=== PATIENT | female | born 1935 | race Caucasian/White ===

== ENCOUNTER 2018-03-08 14:13 | Outpatient (CLI) | payer MEDICARE, OTHER ==
[2014-04-01 01:54] VITALS: BP 142/60
== END 2018-03-08 14:20 ==
LOC: LAB 14:13
PROVIDERS: ATTEND Internal Medicine
DX: Z01.812 Encounter for preprocedural laboratory examination (principal)
CPT/HCPCS: 36415; 85610; 85730

== ENCOUNTER 2018-09-23 09:24 | Outpatient (CLI) | payer MEDICARE, OTHER ==
[2014-04-01 01:54] VITALS: BP 142/60
[2018-09-23 10:24] LABS: BASOPHILS % 0.6 % (0.0-1.5); EOSINOPHILS % 2.3 % (0.0-6.8); MEAN CORPUSCULAR HEMOGLOBIN 35.9 pg (28.0-34.0); MONOCYTES % 6.4 % (0.0-11.0); NEUTROPHILS # 4.4 # k/uL (1.4-7.7)
[2018-09-23 12:10] LABS: APPEARANCE,URINE CLEAR (CLEAR); COLOR,URINE YELLOW (YELLOW); OCCULT BLOOD,URINE NEGATIVE (NEGATIVE); UROBILINOGEN URINE 0.2 Eu (0.2-1.0)
[2018-09-23 12:20] LABS: eGFR (Non-African) > 60
== END 2018-09-23 09:26 ==
LOC: LAB 09:24
PROVIDERS: ATTEND Internal Medicine
DX: Z00.00 Encounter for general adult medical examination without abnormal findings (principal); I10 Essential (primary) hypertension; E03.9 Hypothyroidism, unspecified; E11.9 Type 2 diabetes mellitus without complications; I25.10 Atherosclerotic heart disease of native coronary artery without angina pectoris; E78.5 Hyperlipidemia, unspecified; M06.9 Rheumatoid arthritis, unspecified
CPT/HCPCS: 36415; 80053; 80061; 81002; 82043; 83036; 84443; 85025

== ENCOUNTER 2018-11-22 13:57 | Outpatient (CLI) | payer OTHER ==
[2014-04-01 01:54] VITALS: BP 142/60
[2018-12-12 12:06] LABS: MEAN CORPUSCULAR HEMOGLOBIN 35.7 pg (28.0-34.0); SEGMENTED NEUTROPHILS % 78 % (39-79)
[2018-12-12 12:07] LABS: MONOCYTES % 5 % (0-11); OVALOCYTES 1+ (NEGATIVE); TEAR DROP CELLS 1+ (NEGATIVE)
== END 2018-11-22 14:02 | disposition home or self-care (01) ==
LOC: LAB 13:57
PROVIDERS: ATTEND Registered Nurse
DX: D75.89 Other specified diseases of blood and blood-forming organs (principal); R53.83 Other fatigue; R70.0 Elevated erythrocyte sedimentation rate
CPT/HCPCS: 36415; 82607; 82746; 85025; 85045; 85651; 86140

== ENCOUNTER 2018-11-29 12:56 | Emergency (ER) | payer OTHER ==
[2014-04-01 01:54] VITALS: BP 142/60
[2018-11-29] MEDS ORDERED: IBUPROFEN 400 MG TABLET PO ONE (13:12)
[2018-12-12 18:15] LABS: eGFR (Non-African) > 60
[2018-12-12 18:17] LABS: SEGMENTED NEUTROPHILS % 74 % (39-79)
--- NOTE | 2018-12-17 11:19 | Diagnostic Imaging Report ---
JENELLE UNDERWOOD [facility] [address] [facility] [address] [address] Report Submission Date: Nov 29, 2018 1:53:58 PM CDT Patient Study Name: SIRENA WERNER Date: Nov 29, 2018 1:27:21 PM CDT Modality Type: DX Gender: F Description: WRIST 3 VIEWS OR MORE : 31 Institution: [facility] Physician: JENELLE UNDERWOOD Exam: Right wrist. History: Pain and swelling after fall 1 week ago. PA, lateral and oblique view of the right wrist are submitted. No previous studies are available for comparison. Well corticated deformity to the distal radial metaphysis may indicate old injury. Severe deformity through the distal ulna may also indicate old injury. Marked degenerate changes at the radiocarpal joint and at the 1st carpometacarpal joint are noted. Soft tissue swelling at the wrist is noted. Widened articulation between the scaphoid bone and lunate is noted. Impression: Findings suggestive of old injury. Clinical correlation is recommended. Degenerate changes. Widened scapholunate articulation. MRI may be necessary to further evaluate. Electronically signed on Nov 29, 2018 1:53:58 PM CDT by: Jaun SKAGGS
--- NOTE | 2018-12-17 11:22 | Diagnostic Imaging Report ---
JENELLE UNDERWOOD [facility] [address] [facility] [address] [place], [place]. [address] Report Submission Date: Nov 29, 2018 1:55:30 PM CDT Patient Study Name: SIRENA WERNER Date: Nov 29, 2018 1:27:01 PM CDT Modality Type: DX Gender: F Description: FOREARM 2 VIEWS : 31 Institution: [facility] Physician: JENELLE UNDERWOOD Exam: Right forearm. History: Pain and swelling. AP and lateral view of the right forearm are submitted. No previous studies are available for comparison. Well corticated deformity to the distal radial metaphysis is noted. Deformity to the distal ulna at may also indicate old injury. Degenerate changes between wrist bones are again noted. No proximal fracture is identified. Impression: Deformities at the right wrist may indicate old injury. No acute fracture is otherwise detected on this study. Electronically signed on Nov 29, 2018 1:55:30 PM CDT by: Jaun SKAGGS
== END 2018-11-29 14:32 | disposition home or self-care (01) ==
LOC: ED 12:56
DX: L03.113 Cellulitis of right upper limb (principal)
CPT/HCPCS: 29260; 36415; 73090; 73110; 80053; 85025; 99283